=== PATIENT | female | born 1985 | race Two or more races ===

== ENCOUNTER → 2023-06-21 | Outpatient (CLI) | payer OTHER ==
[~2023-06-21] MED LIST: FOLIC ACID0.4 MG
== END | disposition home or self-care (01) ==
LOC: PRENATAL 14:11
PROVIDERS: ATTEND Obstetrics & Gynecology Maternal & Fetal Medicine
DX: O36.80X0 Pregnancy with inconclusive fetal viability, not applicable or unspecified (principal); O09.529 Supervision of elderly multigravida, unspecified trimester; O10.019 Pre-existing essential hypertension complicating pregnancy, unspecified trimester; O30.90 Multiple gestation, unspecified, unspecified trimester; Z3A.09 9 weeks gestation of pregnancy

== ENCOUNTER 2023-07-08 08:06 | Outpatient (CLI) | payer OTHER | END 2023-07-08 08:08 | disposition home or self-care (01) | LOC: PRENATAL 08:06 | PROVIDERS: ATTEND Obstetrics & Gynecology Maternal & Fetal Medicine | DX: O36.80X0 Pregnancy with inconclusive fetal viability, not applicable or unspecified (principal); O10.019 Pre-existing essential hypertension complicating pregnancy, unspecified trimester; O30.90 Multiple gestation, unspecified, unspecified trimester; Z14.8 Genetic carrier of other disease; Z3A.11 11 weeks gestation of pregnancy ==

== ENCOUNTER 2023-09-04 08:06 | Outpatient (CLI) | payer OTHER | END 2023-09-04 08:08 | disposition home or self-care (01) | LOC: PRENATAL 08:06 | PROVIDERS: ATTEND Obstetrics & Gynecology Maternal & Fetal Medicine | DX: O35.3XX0 Maternal care for (suspected) damage to fetus from viral disease in mother, not applicable or unspecified (principal); O44.00 Complete placenta previa NOS or without hemorrhage, unspecified trimester; O09.529 Supervision of elderly multigravida, unspecified trimester; O10.019 Pre-existing essential hypertension complicating pregnancy, unspecified trimester; O30.90 Multiple gestation, unspecified, unspecified trimester; Z3A.20 20 weeks gestation of pregnancy ==

== ENCOUNTER 2023-11-26 11:20 | Outpatient (CLI) | payer OTHER ==
[~2023-11-26 11:20] MED LIST changes: +CHILDREN'S ASPI81 MG PO; +PRENATAL CAPLE1 EAC1 PO
== END 2023-11-26 11:21 | disposition home or self-care (01) ==
LOC: PRENATAL 11:20
PROVIDERS: ATTEND Obstetrics & Gynecology Maternal & Fetal Medicine
DX: O36.5930 Maternal care for other known or suspected poor fetal growth, third trimester, not applicable or unspecified (principal); O36.8130 Decreased fetal movements, third trimester, not applicable or unspecified; O09.523 Supervision of elderly multigravida, third trimester; O30.003 Twin pregnancy, unspecified number of placenta and unspecified number of amniotic sacs, third trimester; O13.3 Gestational [pregnancy-induced] hypertension without significant proteinuria, third trimester; O14.93 Unspecified pre-eclampsia, third trimester; O60.03 Preterm labor without delivery, third trimester; O99.013 Anemia complicating pregnancy, third trimester; Z3A.32 32 weeks gestation of pregnancy

== ENCOUNTER 2023-11-28 18:30 | Inpatient (IN) | payer OTHER ==
[~2023-11-28] VITALS: Ht 154.9 cm; Wt 1.4 kg
[2023-11-28] MEDS ORDERED: NIFEDIPINE20 MG PO (18:34)
[2023-11-28] MEDS ORDERED: IRON236 MG PO (18:34)
[2023-11-28] MEDS ORDERED: PEPCID AC20 MG PO (18:35)
[2023-11-28] MEDS ORDERED: RINGERS SOLUTION,LACTATED 1,000 ML IV SCH (18:45)
[2023-11-28 19:23] LABS: HEMATOCRIT 32.5 % (36.0-45.00); HEMOGLOBIN 11.4 g/dL (12.0-15.00); MEAN CELL VOLUME 84.9 fL (80.00-100.00); MEAN CORPUSCULAR HEMOGLOBIN 29.8 pg (27.00-32.0); PH,URINE 5.5 (5.0-8.0); PLATELET COUNT 292 K/uL (150-450); RED BLOOD COUNT 3.83 M/uL (4.00-6.00); RED CELL DISTRIBUTION WIDTH 16.1 % (11.5-14.5); URINE APPEARANCE Clear; URINE BILIRRUBIN Negative (NEGATIVE); URINE BLOOD Negative; URINE COLOR Yellow; URINE GLUCOSE Negative (NEGATIVE); URINE LEUKOCYTE Trace; URINE NITRATE Negative; URINE PROTEIN Negative (NEGATIVE)
[2023-11-28 19:27] LABS: URINE EPITHELIAL CELLS 66.6 uL (0.0-38.8); URINE WBC 23.3 uL (0.0-23.2)
[2023-11-28 19:38] LABS: URINE RBC 1.8 uL (0.0-20.8)
[2023-11-28 19:46] LABS: ALBUMIN 2.7 gm/dL (3.4-5.0); BILIRUBIN TOTAL 0.43 mg/dL (0.3-1.2); CALCIUM 9.3 mg/dL (8.5-10.1); CREATININE SERUM 0.66 mg/dL (0.55-1.02); GFR 99.19; GLOBULINA 4.2 G/DL (2.4-3.5); POTASSIUM 4.4 mEq/L (3.5-5.1); TOTAL PROTEIN 6.9 gm/dL (6.4-8.2)
[2023-11-28 20:20] LABS: INR 0.96; PROTHROMBIN TIME 10.1 SECONDS (9.0-11.5)
[2023-11-28] MEDS ORDERED: TERBUTALINE SULFATE 1 MG/ML AMPUL SUBCUTANEO SCH (21:30)
[2023-11-29] MEDS ORDERED: CEFAZOLIN SODIUM 1,000 MG VIAL IV SCH
[2023-11-29] MEDS ORDERED: FAMOTIDINE/PF 20 MG/2 ML VIAL IV SCH (09:00)
[2023-11-29] MEDS ORDERED: NIFEDIPINE 30 MG TAB.SA.OSM PO SCH (09:00)
[2023-11-29] MEDS ORDERED: ERYTHROMYCIN BASE 1 GM TUBE OP ONE (21:43)
[2023-11-29] MEDS ORDERED: OXYTOCIN 10 UNITS/ML VIAL ONE (21:43)
[2023-11-29] MEDS ORDERED: PROMETHAZINE HCL 25 MG/ML AMPUL IM SCH (22:21)
[2023-11-29] MEDS ORDERED: MEPERIDINE HCL/PF 50 MG/ML VIAL IM PRN (22:30)
[2023-11-30] MEDS ORDERED: CEFAZOLIN SODIUM 1,000 MG VIAL ONE (02:09)
[2023-11-30] MEDS ORDERED: OxyCODONE HCL/APAP UD (PERCOCET) PO PRN (09:45)
[2023-12-01] MEDS ORDERED: DOCUSATE SODIUM 100MG CAP PO STA (17:24)
[2023-12-02] MEDS ORDERED: DOCUSATE SODIUM 100MG CAP PO SCH (09:00)
== END 2023-12-02 17:08 | disposition home or self-care (01) | DRG 783 ==
LOC: OBS/DEL 18:30 → OB/GYN 11-29 18:26 → LDR 11-29 18:26 → OB/GYN 11-29 20:08
PROVIDERS: ADMIT Obstetrics & Gynecology Obstetrics; ATTEND Obstetrics & Gynecology Obstetrics
PROC: 4A1HXCZ Monitoring of Products of Conception, Cardiac Rate, External Approach (ICD-10-PCS; 2023-11-29)
PROC: 10D00Z1 Extraction of Products of Conception, Low, Open Approach (ICD-10-PCS; principal; 2023-11-30)
PROC: 0UB70ZZ Excision of Bilateral Fallopian Tubes, Open Approach (ICD-10-PCS; 2023-11-30)
DX: O62.0 Primary inadequate contractions (principal); O60.14X2 Preterm labor third trimester with preterm delivery third trimester, fetus 2; O11.4 Pre-existing hypertension with pre-eclampsia, complicating childbirth; O42.013 Preterm premature rupture of membranes, onset of labor within 24 hours of rupture, third trimester; O32.1XX1 Maternal care for breech presentation, fetus 1; O30.033 Twin pregnancy, monochorionic/diamniotic, third trimester; Z37.2 Twins, both liveborn; Z3A.33 33 weeks gestation of pregnancy; Z37.0 Single live birth; Z20.822 Contact with and (suspected) exposure to COVID-19; Z30.2 Encounter for sterilization